=== PATIENT | male | born 1995 | race African-American/Black ===

== ENCOUNTER 2018-01-18 14:09 | Emergency (ER) | payer BC ==
[~2018-01-18] VITALS: Ht 165.1 cm; Wt 77.0 kg
[2018-01-18 14:13] VITALS: BP 144/70; PULSE 95; TEMP 36.7; O2SAT 99; Ht 165.1 cm; Wt 77.0 kg
--- NOTE | 2018-01-18 15:26 | DIAGNOSTIC IMAGING REPORT ---
L KNEE 3 VIEWS CLINICAL HISTORY: Left knee pain status post trauma COMPARISON: None. DISCUSSION: No acute fractures or dislocations are visualized. There is a moderate suprapatellar joint effusion. IMPRESSION: 1. Moderate suprapatellar joint effusion 2. No fractures identified on conventional radiographic imaging Electronically signed by: Albaro Viera M.D. 01/18/2018 3:25 PM Dictated Date/Time: 01/18/2018 3:25 PM
--- NOTE | 2018-01-18 19:24 | EMERGENCY ROOM VISIT NOTE ---
History First contact with patient: 14:19 Chief Complaint: KNEEPAIN Stated Complaint: HURT KNEE History of Present Illness The patient is a 22 year old male who presents to the Emergency Room with complaints of left knee pain after falling onto concrete while playing basketball yesterday. The patient reports significant swelling of the knee, and difficulty with flexion and extension. The patient reports that he occasionally feels a clicking sensation over the inner aspect of the knee. He denies any instability, shifting or locking. The patient denies any significant pain with weightbearing, denying any pain on my exam. He did radius his discomfort a 5 out of 10 in triage. The patient denies any prior history of left knee injuries. He currently denies any pain extending into the hip or ankle region. He denies paresthesias or numbness of the left lower extremity. Review of Systems 10 system review was performed and was negative except for pertinent positives and negatives as indicated in history of present illness Past Medical/Surgical History Medical Problems: (1) Asthma (2) Bronchitis Surgical Problems: (1) No history of previous surgery Family History FH: diabetes mellitus FH: hypertension Social History Smoking Status: Never Smoker Alcohol Use: occasionally Marital Status: single Occupation Status: [employer] student Current/Historical Medications No Active Prescriptions or Reported Meds Physical Exam Vital Signs Date Time Temp Pulse Resp B/P (MAP) Pulse Ox O2 Delivery O2 Flow Rate FiO2 01/18/18 14:13 36.7 95 16 144/70 99 Room Air Physical Exam CONSTITUTIONAL: Healthy and well nourished. Alert and oriented X 3 with positive affect. Patient does not appear in any acute distress. HEENT: Normocephalic, atraumatic. Pupils equal, round and reactive. NECK: Full active range of motion without discomfort. MUSCULOSKELETAL: Examination of the left knee shows a tense 3+ joint effusion. He has minimal tenderness to palpation over the medial and lateral joint line. Patient has limited range of motion of about 60 of flexion, secondary to the joint effusion. Negative anterior drawer, negative posterior drawer. Collateral ligaments are intact with varus and valgus stress. No focal tenderness over the hamstrings, peripatellar region, quadriceps, quadriceps tendon or patellar tendon. Pedal pulses are intact. INTEGUMENTARY: No rash or other significant dermatologic conditions noted. NEUROLOGIC: Left lower extremity is sensory intact. Medical Decision & Procedures ER Provider Diagnostic Interpretation: My interpretation of left knee x-rays does not show any obvious fractures or dislocation. Radiologist report is as follows: L KNEE 3 VIEWS CLINICAL HISTORY: Left knee pain status post trauma COMPARISON: None. DISCUSSION: No acute fractures or dislocations are visualized. There is a moderate suprapatellar joint effusion. IMPRESSION: 1. Moderate suprapatellar joint effusion 2. No fractures identified on conventional radiographic imaging ED Course Patient history and physical exam were performed. Nurse's notes were reviewed. Vital signs were reviewed and were normal. The patient refused any analgesics. X-rays of the left knee were normal. The patient was dispensed a knee immobilizer and crutches. He was encouraged to intermittently apply ice and elevate the knee for swelling. Ibuprofen and Tylenol as needed for pain. The patient was provided contact information for [facility] for further reevaluation and management. The patient voiced understanding of all discharge instructions, was happy with plan of care, and denied any significant discomfort at the time of discharge. Medical Decision Medication Reconcilliation Current Medication List: was personally reviewed by nj Blood Pressure Screening Patient's blood pressure: Normal blood pressure Impression Primary Impression: Left knee injury Additional Impression: Effusion, left knee Departure Information Dispostion Home / Self-Care Condition FAIR Prescriptions No Active Prescriptions or Reported Meds Referrals Luis Zamudio, D.O. Forms HOME CARE DOCUMENTATION FORM, IMPORTANT VISIT INFORMATION Patient Instructions My [facility] Additional Instructions Intermittently apply ice and elevate the leg for swelling and pain. Use crutches and/or knee immobilizer as needed to avoid further injury - NO LIMPING. Ibuprofen or Tylenol if needed for any developing discomfort. Recommend follow-up with [facility] (Dr. Zamudio) for further reevaluation and management -call for an appointment. FOR SCHOOL: IRINA WAS IN THE ER TODAY, MON 01/18/18 FROM 2-4 PM. Problem Qualifiers Primary Impression: Left knee injury Encounter type: initial encounter Qualified Codes: S89.92XA - Unspecified injury of left lower leg, initial encounter
== END 2018-01-18 16:05 | disposition home or self-care (01) ==
LOC: C.EDB 14:11 → C.EDD 16:05
DX: S89.92XA Unspecified injury of left lower leg, initial encounter (principal); M25.562 Pain in left knee; M25.462 Effusion, left knee; W19.XXXA Unspecified fall, initial encounter; Y93.67 Activity, basketball